=== PATIENT | male | born 1960 | race Caucasian/White ===

== ENCOUNTER 2019-04-18 08:39 | Emergency (ER) | payer BC ==
[~2019-04-18] VITALS: Ht 185.4 cm; Wt 111.5 kg
[~2019-04-18 08:39] MED LIST: ACET500C5 PO; DICL1KIT14 TP
[2019-04-18 08:48] VITALS: BP 118/74; PULSE 93; RESP 18; Ht 185.4 cm; Wt 111.5 kg
--- NOTE | 2019-04-18 09:54 | ERD ---
ER Documentation Chief Complaint Chief Complaint left knee pain s/p surgery 09/2017 HPI Patient is a 59 years old male with past medical history of arthritis and left knee replacement in September 30, 2017 presented to the clinic for severe left knee pain. Patient reports that he was diagnosed with a hairline fracture 2 months ago and is scheduled for a second knee replacement. Patient was informed by his orthopedic to avoid antibiotics for the time being due to stable vital signs. ROS All systems reviewed and are negative except as per history of present illness. Medications Home Meds Active Scripts Diclofenac Sodium (Diclo Gel) 1 Each Kit, 1 EACH TP TID for 7 Days, KIT Prov:RINKU VILLANUEVA PA-C 04/18/19 Acetaminophen* (Tylophen*) 500 Mg Capsule, 2 CAP PO Q8H PRN for PAIN AND OR ELEVATED TEMP, #20 CAP Prov:RINKU VILLANUEVA PA-C 04/18/19 Allergies Allergies: Coded Allergies: No Known Allergy (Unverified , 04/18/19) PMhx/Soc History of Surgery: No Anesthesia Reaction: No Hx Neurological Disorder: No Hx Respiratory Disorders: No Hx Cardiac Disorders: No Hx Psychiatric Problems: No Hx Miscellaneous Medical Probl: No FmHx Family History: No diabetes, No coronary disease, No other Physical Exam Vitals Physical Exam Const: No acute distress Head: Atraumatic Resp: Clear to auscultation bilaterally Cardio: Regular rate and rhythm, no murmurs Skin: No petechiae or rashes Psych: Normal Mood and Affect Left Knee Exam: Mild tenderness to palpation. Vertical surgical scar present. No signs of erythema, induration, pus drainage. Results 24 hrs Current Medications Medications Dose Sig/Steve Start Time Status Last (Trade) Ordered Route PRN Stop Time Admin Dose Reason Admin 1 tab ONCE ONCE 04/18/19 DC 04/18/19 Acetaminophen PO 10:00 10:05 / 04/18/19 10:01 Hydrocodone Bitart (Crary (5/325)) Procedures/MDM Patient was seen and evaluated for left knee pain most likely from arthritis. Patient was given Crary 5/325mg in ED. patient denied imaging of left knee. Patient has stable vital signs with low suspicion of septic arthritis/fractures. Patient was advised that he will be referred to barrel painter for further evaluation. He was advised that he will be given Tylenol. Patient is stable and ready for discharge. Patient will be discharged with Tylenol and advised to follow-up with barrel painter and PCP/orthopedic. Departure Diagnosis: Primary Impression: Knee pain Chronicity: acute Laterality: left Qualified Codes: M25.562 - Pain in left knee Condition: Stable Patient Instructions: Knee Pain, Uncertain Cause Referrals: JF CALDERA MD [facility] Additional Instructions: Patient advised to return to the ED immediately for new or worsening symptoms. Patient advised to follow up with primary care provider in the next 24-48 hours. Patient verbalized understanding and agrees with treatment plan and course of action. If patient has no primary care they may follow up with [facility] [address] [place] [id number] or [facility] [address] [place] [address] or [facility] [address] [place] [address] RINKU VILLANUEVA PA-C Apr 18, 2019 09:54
[2019-04-18] MEDS ORDERED: HYDROCODONE/APAP (5/325) TAB PO ONE (10:00)
== END 2019-04-18 11:04 | disposition home or self-care (01) ==
LOC: FTE 08:39
DX: M25.562 Pain in left knee (principal)
CPT/HCPCS: 99283